=== PATIENT | male | born 1980 | race Caucasian/White ===

== ENCOUNTER 2017-02-03 05:25 | Day surgery (SDC) | payer BC ==
[~2017-02-03 05:25] MED LIST: HYDROCODONE-APA1 TAB PO; KLONOPIN1 MG PO; ROBAXIN-750750 MG PO
[2017-02-03 07:40] VITALS: BP 133/78; BMI 29.9
[2017-02-03] MEDS ORDERED: DILAUDID2 MG PO (10:43)
--- NOTE | 2017-02-03 13:19 | OP ---
PATIENT NAME: TARI SOLORZANO MEDICAL RECORD: [id number] :76 [facility]ATION:[facility] AD[facility]ION DATE: SURGEON: DUNCAN VIZCAINO MD DATE OF OPERATION: 02/03/2017 PREOPERATIVE DIAGNOSES: SLAP lesion of the right shoulder with impingement syndrome and acromioclavicular arthritis. POSTOPERATIVE DIAGNOSES: SLAP lesion of the right shoulder with impingement syndrome and acromioclavicular arthritis. PROCEDURES: 1. Arthroscopic SLAP repair. 2. Arthroscopic distal clavicle excision under separate incision -- 1 cm. 3. Arthroscopic subacromial decompression, acromioplasty and bursectomy. SURGEON: Duncan Vizcaino MD ANESTHESIA: General. INTRAOPERATIVE COMPLICATIONS: None. SUMMARY OF PATHOLOGIC FINDINGS: Consistent with the preoperative diagnosis, the patient had anterior labral tear with a small paralabral cyst that required debridement and reapproximation of the labrum. The patient also had a downward sloping acromion with excoriation of the coracoacromial ligament as well as acromioclavicular arthritis. OPERATIVE SUMMARY IN DETAIL: After obtaining the appropriate preoperative orthopedic surgery consent as well as anesthetic consultation, evaluation and clearance, the patient was brought to the operating room and placed on the operating table in supine position. After general laryngeal mask airway was administered, the patient was placed in left lateral decubitus position. All pressure points were well padded to include down leg peroneal pad as well as axillary roll. The patient was held firmly to the operating table using the vacuum pack suction system. Right upper extremity and shoulder were then prepped and draped in routine sterile fashion. The arm was held in the Arthrex traction boom at 30 degrees flexion, 30 degrees of abduction with 10 pounds of traction laterally. Arthroscopy was established in the glenohumeral joint from a posterior portal. Anterior portal was established in the anterior safe interval. Diagnostic arthroscopy did reveal the labrum and areas mentioned. Tertiary portal of My was created for labral repair. Resector was used to decorticate the anterior aspect of the labrum and debride the small paralabral cyst. A single 2.9 labral PushLock was used with a labral tape to reapproximate the labrum with good fixation. Having completed this, attention was turned to the subacromial space. While on the subacromial space, [place] tissue ablation system was utilized to denude the undersurface of the acromion of all soft tissue elements and release coracoacromial ligament. A 5-0 barrel bur was used to perform acromioplasty at the level of acromioclavicular joint and then through a separate anterior arthroscopic portal, the distal clavicle was excised 1 cm. Having completed this, arthroscopy portals were closed in routine interrupted fashion using 4-0 Prolene. Sterile dressings were applied. The patient was awakened, taken to recovery room in stable condition. All final needle and sponge counts were OPERATIVE REPORT [id number] TARI SOLORZANO. TRANSINT:[id number] Voice Confirmation ID: [id number] DOCUMENT ID: [id number] CHARIS ARAIZA, DUNCAN VAZQUEZ at 1319 CC: [id number] DICTATION DATE: 02/03/17 1046 SILVERWARE ASSEMBLER: 02/03/17 1111 [facility] [address] [place] [address]
--- NOTE | 2017-02-03 13:48 | NUR ---
1200 IV DC WITH CATHER TIP INTACT
== END 2017-02-03 12:30 | disposition home or self-care (01) ==
LOC: D.OPS 05:25 → D.PAN 08:30 → D.OPS 09:15 → D.PAN 09:20 → D.OPS 09:50
DX: S43.431A Superior glenoid labrum lesion of right shoulder, initial encounter (principal); K21.9 Gastro-esophageal reflux disease without esophagitis; M75.41 Impingement syndrome of right shoulder; M19.011 Primary osteoarthritis, right shoulder; Z01.812 Encounter for preprocedural laboratory examination

== ENCOUNTER → 2018-03-27 13:21 | Outpatient (CLI) | payer BC ==
[~2018-03-27 13:21] MED LIST changes: +DILAUDID2 MG PO
== END | disposition home or self-care (01) ==
LOC: D.MRI 09:00 → D.RAD 11:00
DX: M25.511 Pain in right shoulder (principal)

== ENCOUNTER → 2018-12-04 13:34 | Outpatient (CLI) | payer BC ==
--- NOTE | 2018-12-05 08:33 | NUR ---
TIME OUT PERFORMED [id number] USING AND NAME. DETERMINED NO ALLERGIES. TEST PERFORMED BY DR. BOYLE
== END | disposition home or self-care (01) ==
LOC: D.RAD 13:34
PROVIDERS: ATTEND Orthopaedic Surgery
DX: M25.519 Pain in unspecified shoulder (principal)

== ENCOUNTER 2019-02-15 06:10 | Day surgery (SDC) | payer BC ==
[2019-02-14 10:07] LABS: HEMATOCRIT 46.2 % (42.0-54.0); HEMOGLOBIN 15.8 g/dL (13.5-17.5); MCH 32.4 pg (26.0-34.0); MCHC 34.2 g/dL (31.0-37.0); MCV 94.7 fL (80.0-100.0); MEAN PLATELET VOLUME 9.2 fL (7.4-10.4); RBC 4.88 10x6/uL (4.20-6.10); RDW 12.6 % (11.5-14.5); WBC 4.7 10x3/uL (4.8-10.8)
[2019-02-14 10:08] LABS: CALC OSMOLALITY 279 mosm/kg (275-300); CALCIUM 8.4 mg/dL (8.5-10.1); CARBON DIOXIDE 31.8 mmol/L (21.0-32.0); CHLORIDE - SERUM 103 mmol/L (98-107); GLUCOSE 105 mg/dL (74-106); POTASSIUM - SERUM 3.7 mmol/L (3.5-5.1); SODIUM 140 mmol/L (136-145); UREA NITROGEN 15 mg/dL (7-18); eGFR NON AFRICAN AMERICAN 88 mL/min (90-120)
[~2019-02-15] VITALS: Ht 182.9 cm; Wt 108.9 kg
[~2019-02-15 06:10] MED LIST changes: +AMBIEN10 MG PO; +CELEXA20 MG PO; +HYDRALAZINE HCL50 MG PO; +LIPITOR20 MG PO; +LOSARTAN/HCT TAB 100 PO; +OMEPRAZOLE40 MG PO; +PERCOCET 10-321 EAC1 PO; +SINGULAIR10 MG PO
[2019-02-15] MEDS ORDERED: TESTOST CYP INJ 200 (06:37)
[2019-02-15] MEDS ORDERED: NICOTINE (06:38)
[2019-02-15 06:41] VITALS: BP 134/83; Ht 182.9 cm; Wt 108.9 kg
[2019-02-15] MEDS ORDERED: HYDROCODON-ACE1 EA10 PO (08:50)
--- NOTE | 2019-02-15 11:00 | OP ---
PATIENT NAME: TARI SOLORZANO MEDICAL RECORD: [id number] :76 LOCATION:[facility] ADMISSION DATE: SURGEON: DUNCAN VIZCAINO MD DATE OF OPERATION: 02/15/2019 PREOPERATIVE DIAGNOSIS: Acromioclavicular arthritis. POSTOPERATIVE DIAGNOSIS: Acromioclavicular arthritis. PROCEDURE: Open distal clavicle excision - 1 cm - open. SURGEON: Duncan Vizcaino MD TESTING LEAD: Andry Lane INTRAOPERATIVE COMPLICATIONS: None. SUMMARY OF PATHOLOGIC FINDINGS: The patient did indeed have a recurrent AC joint arthropathy consistent with preoperative diagnosis as well as diagnostic injections. OPERATIVE SUMMARY IN DETAIL: After obtaining the appropriate preoperative orthopedic surgery consent as well as anesthetic consultation, evaluation and clearance, the patient was brought to the operating room and placed on the operating table in supine position. After adequate general laryngeal mask airway was administered, the patient was placed in beach chair position. All pressure points were well padded. He was held firmly to the operating table using the vacuum pack suction system. Right upper extremity and shoulder were then prepped and draped in routine sterile fashion. The arm was held in the Trimano arm holding device. Appropriate time-out was taken and agreed upon by all. Incision was made directly over the acromioclavicular joint, taken down to the acromioclavicular joint after locating it with the spinal needle. Periosteal dissection was carried back for approximately 1 cm. Sagittal saw was then used to resect the distal clavicle for 1 cm. Having completed this, a small amount of bone wax was applied to the end of the distal clavicle. Irrigation was carried out, followed by closure of the capsule. A #1 Vicryl for subcutaneous closure and then 4-0 Prolene for final skin closure, done by Andry Lane. Sterile dressings were applied. The patient was awakened and taken to recovery room in stable condition. All final needle and sponge counts were correct. TRANSINT:[id number] Voice Confirmation ID: [id number] DOCUMENT ID: [id number] DUNCAN VIZCAINO MD at 1100 CC: [id number] DICTATION DATE: 02/15/19 0853 STARCH MANGLE TENDER: 02/15/19 0918 [facility] [id number] [place] [address]
== END 2019-02-15 10:48 | disposition home or self-care (01) ==
LOC: D.OPS 06:10 → D.PAN 07:30 → D.OPS 08:15
PROVIDERS: Anesthesiology; ATTEND Orthopaedic Surgery
DX: M13.819 Other specified arthritis, unspecified shoulder (principal)